=== PATIENT | female | born 1945 | race Caucasian/White ===

== ENCOUNTER → 2021-10-22 | Emergency (ER) | payer MEDICARE, SELFPAY ==
[~2021-10-22] MED LIST: AMLODIPINE BESYL5 MG PO; FARXIGA10 MG PO; HYDROCHLOROTHIA25 MG PO; LISINOPRIL20 MG PO; METFORMIN HCL500 MG PO
== END | disposition left against medical advice (07) ==
LOC: ER1 17:01
DX: L70.9 Acne, unspecified (principal)
CPT/HCPCS: 99281

== ENCOUNTER 2021-10-24 19:38 | Emergency (ER) | payer MEDICARE | END 2021-10-24 23:47 | disposition left against medical advice (07) | LOC: ER1 19:38 | DX: M54.9 Dorsalgia, unspecified (principal); M79.89 Other specified soft tissue disorders; E11.9 Type 2 diabetes mellitus without complications; I10 Essential (primary) hypertension | CPT/HCPCS: 99281 ==

== ENCOUNTER 2021-10-28 14:40 | Inpatient (IN) | payer MEDICARE ==
[~2021-10-28] VITALS: Ht 165.1 cm; Wt 71.2 kg
[2021-10-28 15:32] LABS: HEMOGLOBIN 15.5 gm/dl (12.3-15.3); RED BLOOD COUNT 4.99 M/UL (4.00-5.10); WHITE BLOOD COUNT 8.5 K/UL (4.5-11.0)
[2021-10-29 04:41] LABS: HEMOGLOBIN 14.3 gm/dl (12.3-15.3); RED BLOOD COUNT 4.62 M/UL (4.00-5.10); WHITE BLOOD COUNT 7.2 K/UL (4.5-11.0)
[2021-10-29] MEDS ORDERED: FARXIGA10 MG PO (14:23)
[2021-10-29] MEDS ORDERED: AMLODIPINE BESYL5 MG PO (14:23)
[2021-10-29] MEDS ORDERED: LISINOPRIL20 MG PO (14:25)
[2021-10-29] MEDS ORDERED: HYDROCHLOROTHIA25 MG PO (14:25)
[2021-10-29] MEDS ORDERED: METFORMIN HCL500 MG PO (14:26)
[2021-10-30 03:06] LABS: HEMOGLOBIN 15.4 gm/dl (12.3-15.3); RED BLOOD COUNT 4.78 M/UL (4.00-5.10)
[2021-10-30 03:33] LABS: WHITE BLOOD COUNT 10.6 K/UL (4.5-11.0)
[2021-10-31 02:06] LABS: HEMOGLOBIN 16.3 gm/dl (12.3-15.3); RED BLOOD COUNT 5.08 M/UL (4.00-5.10); WHITE BLOOD COUNT 8.4 K/UL (4.5-11.0)
--- NOTE | 2021-10-31 10:43 | NUR ---
PT ROOM AIR SATURATION WAS 88%
[2021-10-31] MEDS ORDERED: BUDESONIDE0.5 MG/2 M NEB (11:34)
[2021-10-31] MEDS ORDERED: MEDROL DOSEPAK 24 MG PO (11:34)
[2021-10-31] MEDS ORDERED: DOXYCYCLINE HY100 M2 PO (11:34)
[2021-10-31] MEDS ORDERED: DIGOXIN125 MCG PO (11:34)
[2021-10-31] MEDS ORDERED: LEVALBUTER1.25 MG/3 NEB (11:34)
[2021-10-31] MEDS ORDERED: ELIQUIS 5 MG TAB5 MG PO (11:34)
[2021-10-31] MEDS ORDERED: LOPRESSOR 25 MG25 MG PO (11:34)
[2021-10-31] MEDS ORDERED: PROTONIX 40 MG40 M1 PO (11:34)
[2021-10-31] MEDS ORDERED: FUROSEMIDE40 MG PO (11:34)
[2021-10-31] MEDS ORDERED: ATORVASTATIN CA10 MG PO (11:34)
[2021-10-31] MEDS ORDERED: IPRATROPIU0.2 MG/1 M NEB (11:34)
== END 2021-10-31 16:25 | disposition home or self-care (01) | DRG 291 ==
LOC: ER1 14:40 → PROG CARE 16:56 → CDU 16:56 → PROG CARE 10-29 14:36
PROVIDERS: Emergency Medicine; Internal Medicine; ADMIT Internal Medicine
PROC: B24BZZZ Ultrasonography of Heart with Aorta (ICD-10-PCS; principal; 2021-10-29)
PROC: 5A2204Z Restoration of Cardiac Rhythm, Single (ICD-10-PCS; 2021-10-29)
PROC: 5A0935A Assistance with Respiratory Ventilation, Less than 24 Consecutive Hours, High Flow/Velocity Cannula (ICD-10-PCS; 2021-10-31)
DX: I11.0 Hypertensive heart disease with heart failure (principal); J96.01 Acute respiratory failure with hypoxia; I50.33 Acute on chronic diastolic (congestive) heart failure; J44.1 Chronic obstructive pulmonary disease with (acute) exacerbation; I31.3 Pericardial effusion (noninflammatory); Z20.822 Contact with and (suspected) exposure to COVID-19; I48.91 Unspecified atrial fibrillation; E11.9 Type 2 diabetes mellitus without complications; F41.9 Anxiety disorder, unspecified; I08.1 Rheumatic disorders of both mitral and tricuspid valves; F17.210 Nicotine dependence, cigarettes, uncomplicated; Z79.01 Long term (current) use of anticoagulants; Z90.49 Acquired absence of other specified parts of digestive tract; Z98.891 History of uterine scar from previous surgery
CPT/HCPCS: ECHO; 0240U; 36415; 36600; 71045; 72100; 80053; 81001; 82550; 82553; 82803; 82962; 83036; 83605; 83735; 83880; 84100; 84439; 84443; 84484; 85025; 85379; 85610; 85730; 86140; 87040; 93005; 93306; 93312; 93320; 93970; 94640; 94760; 96372; 96374; 96375; 96376; 99285; J0461; J0696; J1160; J1200; J1650; J1742; J1940; J2250; J2270; J2310; J2405; J2920; J3010; Q9967

== ENCOUNTER 2021-11-01 16:42 | Inpatient (IN) | payer MEDICARE ==
[~2021-11-01] VITALS: Ht 157.5 cm; Wt 60.5 kg
[~2021-11-01 16:42] MED LIST changes: +ATORVASTATIN CA10 MG PO; +BUDESONIDE0.5 MG/2 M NEB; +DIGOXIN125 MCG PO; +DOXYCYCLINE HY100 M2 PO; +ELIQUIS 5 MG TAB5 MG PO; +FUROSEMIDE40 MG PO; +IPRATROPIU0.2 MG/1 M NEB; +LEVALBUTER1.25 MG/3 NEB; +LOPRESSOR 25 MG25 MG PO; +MEDROL DOSEPAK 24 MG PO; +PROTONIX 40 MG40 M1 PO
[2021-11-01 17:16] LABS: HEMOGLOBIN 16.5 gm/dl (12.3-15.3)
[2021-11-01 17:27] LABS: WHITE BLOOD COUNT 11.6 K/UL (4.5-11.0)
[2021-11-02 01:15] LABS: HEMOGLOBIN 15.5 gm/dl (12.3-15.3); RED BLOOD COUNT 4.85 M/UL (4.00-5.10); WHITE BLOOD COUNT 11.4 K/UL (4.5-11.0)
[2021-11-03 01:56] LABS: HEMOGLOBIN 15.8 gm/dl (12.3-15.3); RED BLOOD COUNT 4.94 M/UL (4.00-5.10)
[2021-11-03 01:57] LABS: WHITE BLOOD COUNT 8.4 K/UL (4.5-11.0)
[2021-11-03 19:00] LABS: BORDETELLA PARAPERTUSSIS Not Detected (Not Detectd); BORDETELLA PERTUSSIS Not Detected (Not Detectd); CHLAMYDIA PNEUMONIAE Not Detected (Not Detectd); CORONAVIRUS HKU1 Not Detected (Not Detectd); CORONAVIRUS NL63 Not Detected (Not Detectd); CORONAVIRUS OC43 Not Detected (Not Detectd); CORONOAVIRUS 229E Not Detected (Not Detectd); HUMAN METAPNEUMOVIRUS Not Detected (Not Detectd); HUMAN RHINOVIRUS/ENTEROVIRUS Not Detected (Not Detectd); INFLUENZA A Not Detected (Not Detectd); INFLUENZA B Not Detected (Not Detectd); MYCOPLASMA PNEUMONIAE Not Detected (Not Detectd); PARAINFLUENZA VIRUS 1 Not Detected (Not Detectd); PARAINFLUENZA VIRUS 2 Not Detected (Not Detectd); PARAINFLUENZA VIRUS 3 Not Detected (Not Detectd); PARAINFLUENZA VIRUS 4 Not Detected (Not Detectd); RESPIRATORY SYNCYTIAL VIRUS Not Detected (Not Detectd)
[2021-11-03 20:41] LABS: SARS-CoV-2 NOT DETECTED (Not Detectd)
[2021-11-04 02:02] LABS: HEMOGLOBIN 16.1 gm/dl (12.3-15.3); RED BLOOD COUNT 5.02 M/UL (4.00-5.10)
[2021-11-04 02:09] LABS: WHITE BLOOD COUNT 11.4 K/UL (4.5-11.0)
[2021-11-05 01:58] LABS: HEMOGLOBIN 14.4 gm/dl (12.3-15.3); WHITE BLOOD COUNT 12.4 K/UL (4.5-11.0)
[2021-11-05 01:59] LABS: RED BLOOD COUNT 4.49 M/UL (4.00-5.10)
[2021-11-05 14:12] LABS: ORGANISM ID Not indicated. (.); SPECIMEN SOURCE Urine (.); STREPTOCOCCUS PNEUMONIAE AG Negative (Negative)
[2021-11-06 03:39] LABS: RED BLOOD COUNT 4.3 M/UL (4.00-5.10); WHITE BLOOD COUNT 10.3 K/UL (4.5-11.0)
[2021-11-06] MEDS ORDERED: ROCEPHIN (12:48)
[2021-11-06] MEDS ORDERED: STEROIDS (12:48)
[2021-11-06] MEDS ORDERED: heparin drip (12:48)
[2021-11-06] MEDS ORDERED: [UNRECOGNIZED DRUG - OTHER] (12:49)
== END 2021-11-06 17:44 | disposition short-term general hospital (02) | DRG 193 ==
LOC: ER1 16:42 → PROG CARE 18:27 → CDU 18:27 → CCU 18:27 → PROG CARE 20:41 → CCU 11-06 10:35
PROVIDERS: Emergency Medicine; Internal Medicine; ADMIT Internal Medicine
PROC: 3E043XZ Introduction of Vasopressor into Central Vein, Percutaneous Approach (ICD-10-PCS; principal; 2021-11-01)
PROC: 5A0935A Assistance with Respiratory Ventilation, Less than 24 Consecutive Hours, High Flow/Velocity Cannula (ICD-10-PCS; 2021-11-02)
PROC: 5A09357 Assistance with Respiratory Ventilation, Less than 24 Consecutive Hours, Continuous Positive Airway Pressure (ICD-10-PCS; 2021-11-03)
PROC: 5A0935A Assistance with Respiratory Ventilation, Less than 24 Consecutive Hours, High Flow/Velocity Cannula (ICD-10-PCS; 2021-11-04)
PROC: 5A09457 Assistance with Respiratory Ventilation, 24-96 Consecutive Hours, Continuous Positive Airway Pressure (ICD-10-PCS; 2021-11-05)
DX: J18.9 Pneumonia, unspecified organism (principal); G92.8 Other toxic encephalopathy; J96.21 Acute and chronic respiratory failure with hypoxia; Z20.822 Contact with and (suspected) exposure to COVID-19; J96.22 Acute and chronic respiratory failure with hypercapnia; E43 Unspecified severe protein-calorie malnutrition; N17.9 Acute kidney failure, unspecified; E87.2 Acidosis; C34.90 Malignant neoplasm of unspecified part of unspecified bronchus or lung; I50.32 Chronic diastolic (congestive) heart failure; J44.0 Chronic obstructive pulmonary disease with (acute) lower respiratory infection; I13.0 Hypertensive heart and chronic kidney disease with heart failure and stage 1 through stage 4 chronic kidney disease, or unspecified chronic kidney disease; I31.3 Pericardial effusion (noninflammatory); I48.91 Unspecified atrial fibrillation; E11.22 Type 2 diabetes mellitus with diabetic chronic kidney disease; E78.5 Hyperlipidemia, unspecified; E86.0 Dehydration; R74.01 Elevation of levels of liver transaminase levels; F17.210 Nicotine dependence, cigarettes, uncomplicated; N18.2 Chronic kidney disease, stage 2 (mild); F41.9 Anxiety disorder, unspecified; L89.152 Pressure ulcer of sacral region, stage 2; L89.322 Pressure ulcer of left buttock, stage 2; I51.3 Intracardiac thrombosis, not elsewhere classified; R53.81 Other malaise; T38.0X5A Adverse effect of glucocorticoids and synthetic analogues, initial encounter; Z79.01 Long term (current) use of anticoagulants; Z90.49 Acquired absence of other specified parts of digestive tract; Z98.891 History of uterine scar from previous surgery; Z90.710 Acquired absence of both cervix and uterus; Z68.24 Body mass index [BMI] 24.0-24.9, adult
CPT/HCPCS: 0240U; 36415; 36600; 70450; 71045; 71250; 74018; 78580; 80048; 80053; 80162; 81001; 82140; 82436; 82550; 82553; 82570; 82803; 82962; 83605; 83735; 83880; 84100; 84133; 84156; 84300; 84484; 85025; 85027; 85730; 86140; 87040; 87070; 87205; 87278; 87633; 87899; 94640; 94660; 94760; 97161; 99285; A9540; C9113; J0692; J0696; J1644; J1650; J1940; J2920; J3486; J7030; P9047; Q0177